=== PATIENT | male | born 1970 | race African-American/Black ===

== ENCOUNTER 2016-12-31 11:43 | Emergency (ER) | payer MEDICAID ==
[~2016-12-31] VITALS: Ht 180.3 cm; Wt 80.0 kg
[2016-12-31] MEDS ORDERED: NAPROXEN 500MG TABLET PO ONE (15:30)
[2016-12-31 15:37] VITALS: BP 125/76
== END 2016-12-31 17:34 | disposition home or self-care (01) ==
LOC: ER 11:56
DX: R51 Headache (principal); Z98.890 Other specified postprocedural states
CPT/HCPCS: 99283